=== PATIENT | male | born 1990 | race Hispanic/Latino ===

== ENCOUNTER 2020-09-16 08:42 | Emergency (ER) | payer OTHER ==
[~2020-09-16] VITALS: Ht 177.8 cm; Wt 91.6 kg
== END 2020-09-16 10:55 | disposition home or self-care (01) ==
LOC: ED 08:42 → EDSEX 08:43 → ED 10:55
DX: R10.13 Epigastric pain (principal)
CPT/HCPCS: 74177; 80053; 83690; 85025; 96361; 96375; 99284-25; J1885; J2405; J7030; Q9967